=== PATIENT | male | born 1995 | race Caucasian/White ===

== ENCOUNTER 2016-12-22 10:56 | Emergency (ER) | payer OTHER ==
[~2016-12-22] VITALS: Ht 172.7 cm; Wt 68.0 kg
[~2016-12-22 10:56] MED LIST: NOHOMEMEDS; PEPCID40 MG PO; ROBITUSSIN AC,T10 ML PO; VIBRAMYCIN100 MG PO
[2016-12-22 11:08] VITALS: BP 141/79
[2016-12-22] MEDS ORDERED: PREDNISONE20 MG PO (13:08)
[2016-12-22] MEDS ORDERED: KEFLEX500 MG PO (13:09)
[2016-12-22] MEDS ORDERED: MOTRIN800 MG PO (13:31)
== END 2016-12-22 14:09 | disposition home or self-care (01) ==
LOC: EME 10:56
DX: L55.9 Sunburn, unspecified (principal); R20.0 Anesthesia of skin; R53.1 Weakness; F17.200 Nicotine dependence, unspecified, uncomplicated
CPT/HCPCS: 99281; 99283